=== PATIENT | female | born 1990 | race African-American/Black ===

== ENCOUNTER 2017-06-19 07:37 | Emergency (ER) | payer SELFPAY ==
[2017-06-19 08:52] LABS: #Eosinphils 0.3 thou/uL (0.0-0.7); #Lymphocytes 2.6 thou/uL (1.20-3.40); #Monocytes 0.5 thou/uL (0.11-0.59); #Neutrophils 4.4 thou/uL (1.40-6.50); %Basophils 0.5 % (0.0-1.0); %Eosinophils 3.6 % (0.0-10.0); %Lymphocytes 32.8 % (21.0-51.0); %Monocytes 6.5 % (0.0-10.0); %Neutrophils 56.7 % (42.0-75.0); Hemoglobin 11.4 g/dL (12.0-16.0); Mean Corpuscular HGB CONC 30.3 g/dL (32.0-36.0); Mean Corpuscular Hemoglobin 21.6 pg (27.0-31.0); Mean Corpuscular Volume 71.4 fl (81.0-99.0); Mean Platelet Volume 6.9 fL (7.4-10.4); Platelet Count 239 thou/uL (130-400); RBC Distribution Width 17.1 % (11.5-14.5); Red Blood Cell (RBC) Count 5.26 mill/uL (4.20-5.40); White Blood Cell (WBC) Count 7.8 thou/uL (4.8-10.8)
--- NOTE | 2017-06-19 08:55 | ULT ---
ULTRASOUND TRANSVAGINAL DOPPLER DUPLEX: Date: 06/19/17 HISTORY: 27-year-old female with first trimester vaginal bleeding. TECHNIQUE: Endovaginal transducer used to visualize intrapelvic contents in greater detail. Color flow Doppler a nd Pulsed Doppler spectral waveform analysis of ovaries. FINDINGS: Uterus: 11.5 x 7 x 5.5 cm. Endometrial stripe: 1.8 cm (18 mm). No intrauterine gestation sac identified. Right ovary: 4.5 x 2 x 2 cm. Left ovary: 3.5 x 2 x 2 cm. Uterine leiomyoma (fibroid): None. Blood flow in both ovaries: Demonstrated. Ovarian cyst (defined as 2 cm or greater): None. Free fluid in the cul-de-sac: Tiny amount. IMPRESSION: 1. Thickened endometrial stripe. 2. No evidence of intrauterine gestation. EDDIE Devries POS: [facility]
[2017-06-19 09:20] LABS: Anisocytosis SLIGHT = 6-15 cells (100X) (0-5/hpf); MDiff Complete? YES; PLT Morphology Comment Appears Adequate
== END 2017-06-19 10:18 | disposition home or self-care (01) ==
LOC: ERS 07:37
DX: O20.0 Threatened abortion (principal); O99.211 Obesity complicating pregnancy, first trimester; Z3A.01 Less than 8 weeks gestation of pregnancy
CPT/HCPCS: 36415; 76856; 84702; 85025; 86850; 86900; 86901

== ENCOUNTER 2017-09-09 15:36 | Emergency (ER) | payer MEDICAID, SELFPAY ==
--- NOTE | 2017-09-09 16:41 | RAD ---
TWO VIEW CHEST: History: Chest pain. FINDINGS: Lungs are clear. No infiltrates are seen. Heart and mediastinum are unremarkable. IMPRESSION: No acute finding. POS: [facility]
[2017-09-09 16:51] LABS: Hemoglobin 11.1 g/dL (12.0-16.0); Mean Corpuscular HGB CONC 29.9 g/dL (32.0-36.0); Mean Corpuscular Hemoglobin 21.6 pg (27.0-31.0); Mean Corpuscular Volume 72.3 fl (81.0-99.0); Mean Platelet Volume 11.1 fL (7.4-10.4); Platelet Count 225 thou/uL (130-400); RBC Distribution Width 16.2 % (11.5-14.5); Red Blood Cell (RBC) Count 5.14 mill/uL (4.20-5.40); White Blood Cell (WBC) Count 6.3 thou/uL (4.8-10.8)
[2017-09-09 16:55] LABS: INR-International Normal Ratio 1.1; PTT 26.9 SEC (22.9-36.1); Prothrombin Time 13.9 SEC (12.0-14.7)
[2017-09-09 16:56] LABS: D-Dimer Test 0.34 *mcg/mL (0.27-0.43)
[2017-09-09 17:11] LABS: #Basophils 0.1 thou/uL (0.0-0.2); #Eosinphils 0.2 thou/uL (0.0-0.7); #Lymphocytes 2.8 thou/uL (1.20-3.40); #Monocytes 0.4 thou/uL (0.11-0.59); #Neutrophils 2.8 thou/uL (1.40-6.50); %Eosinophils 3.5 % (0.0-10.0); %Lymphocytes 44.5 % (21.0-51.0); %Neutrophils 44.9 % (42.0-75.0); Anisocytosis SLIGHT = 6-15 cells (100X) (0-5/hpf); Hypochromia SLIGHT = 6-15 cells (100X) (0-5/hpf); MDiff Complete? YES; Microcytosis SLIGHT = 6-15 cells (100X) (0-5/hpf); Ovalocytes SLIGHT = 2-5 cells (100X) (0-1/hpf); PLT Morphology Comment Appears Adequate
[2017-09-09 17:12] LABS: ALT (SGPT) 19 U/L (8-55); AST (SGOT) 24 U/L (5-34); Albumin 4.4 g/dL (3.5-5.0); Alkaline Phosphatase 56 U/L (40-150); Anion Gap 13 mmol/L (10-20); BUN (Urea Nitrogen) 9 mg/dL (7.0-18.7); Bilirubin, Total 0.6 mg/dL (0.2-1.2); CK (CPK) 480 U/L (29-168); Calc. Creatinine Clearance 0 mL/min (70-130); Calcium 9.4 mg/dL (7.8-10.44); Carbon Dioxide 23 mmol/L (22-29); Chloride 106 mmol/L (98-107); Estimated GFR-MDRD Greater than 90; Globulin 3.7 g/dL (2.4-3.5); Glucose 80 mg/dL (70-105); Potassium 3.9 mmol/L (3.5-5.1); Protein, Total 8.1 g/dL (6.0-8.3); Sodium 138 mmol/L (136-145)
[2017-09-09 17:16] LABS: CKMB 1.5 ng/mL (0-6.6); Troponin I Less than 0.010 ng/mL (< 0.028)
--- NOTE | 2017-09-11 15:02 | EKG ---
Test Reason : Blood Pressure : / mmHG Vent. Rate : 082 BPM Atrial Rate : 082 BPM P-R Int : 144 ms QRS Dur : 076 ms QT Int : 376 ms P-R-T Axes : 000 042 026 degrees QTc Int : 439 ms Sinus rhythm with Premature supraventricular complexes Otherwise normal ECG Confirmed by MANASA RODRIGUEZ ([id number]), metropolitan editor MARCELL SWIFT ([id number] on 09/11/2017 3:00:44 PM Referred By: Confirmed By:MANASA RODRIGUEZ
== END 2017-09-09 18:00 | disposition home or self-care (01) ==
LOC: ERS 15:36
DX: R07.9 Chest pain, unspecified (principal); D50.9 Iron deficiency anemia, unspecified; F32.9 Major depressive disorder, single episode, unspecified
CPT/HCPCS: 71046; 80053; 82553; 84484; 85025; 85379; 85610; 85730; 93005

== ENCOUNTER 2017-10-05 16:01 | Emergency (ER) | payer SELFPAY | END 2017-10-05 17:25 | disposition home or self-care (01) | LOC: ERS 16:01 | DX: K08.89 Other specified disorders of teeth and supporting structures (principal); D50.9 Iron deficiency anemia, unspecified; F32.9 Major depressive disorder, single episode, unspecified | CPT/HCPCS: 99282 ==

== ENCOUNTER 2017-11-10 14:39 | Emergency (ER) | payer SELFPAY ==
[2017-11-10] MEDS ORDERED: Dexamethasone 4 mg/ml Vial ONE (15:06)
[2017-11-10] MEDS ORDERED: Metoclopramide HCl 10 MG/2 ML VIAL ONE (15:06)
[2017-11-10] MEDS ORDERED: Ketorolac Tromethamine 30 MG/ML VIAL ONE (15:06)
== END 2017-11-10 16:10 | disposition home or self-care (01) ==
LOC: ERS 14:39
DX: R51 Headache (principal); D50.9 Iron deficiency anemia, unspecified; E28.2 Polycystic ovarian syndrome; F32.9 Major depressive disorder, single episode, unspecified
CPT/HCPCS: 96374; 96375; J1100; J1885; J2765

== ENCOUNTER 2018-05-20 18:41 | Emergency (ER) | payer OTHER, SELFPAY | END 2018-05-20 20:40 | disposition home or self-care (01) | LOC: ERS 18:41 | DX: O99.611 Diseases of the digestive system complicating pregnancy, first trimester (principal); K08.89 Other specified disorders of teeth and supporting structures; O99.281 Endocrine, nutritional and metabolic diseases complicating pregnancy, first trimester; D50.9 Iron deficiency anemia, unspecified; O99.341 Other mental disorders complicating pregnancy, first trimester; F32.9 Major depressive disorder, single episode, unspecified; Z3A.01 Less than 8 weeks gestation of pregnancy | CPT/HCPCS: 99282 ==